=== PATIENT | female | born 1980 | race Caucasian/White ===

== ENCOUNTER 2020-07-26 10:28 | Outpatient (REF) | payer OTHER, SELFPAY | END 2020-07-26 10:29 | disposition home or self-care (01) | LOC: HO.LAB 10:28 | PROVIDERS: Visit Provider Internal Medicine | DX: Z20.828 Contact with and (suspected) exposure to other viral communicable diseases (principal) | CPT/HCPCS: U0003 ==

== ENCOUNTER 2021-07-19 23:47 | Emergency (ER) | payer OTHER, SELFPAY ==
--- NOTE | ~2021-07-19 | XR_ITS ---
EXAMINATION: XR LUMBOSACRAL SPINE CLINICAL INFORMATION: Lumbar spine pain COMPARISON: None TECHNIQUE: Three views of the lumbosacral spine. FINDINGS: There is partial visualization of thoracolumbar spinal fusion hardware. There is a mild convex left scoliosis of the lumbar spine. There is grade 1 anterolisthesis in the lower lumbar spine which may reflect L4 on L5 or L5 on S1; there are associated endplate osteophytes at this level. Alignment in the lateral projection otherwise appears maintained. There is extensive facet arthropathy of the lower lumbar spine. Vertebral body heights appear preserved. No acute fracture is seen. Sacroiliac joints are intact. XR/XR lumbar spine 2-3V IMPRESSION: No definite acute findings. Chronic appearing/degenerative changes of the lower lumbar spine. Partially visualized thoracolumbar spinal fusion hardware.
[2021-07-20 00:06] VITALS: BP 116/72; PULSE 72; RESP 18; TEMP 36.5; O2SAT 100; BMI 37.4
--- NOTE | 2021-07-20 00:48 | ED.WOUNDLAC ---
HPI - Wound/Laceration General Chief Complaint: Wound/Laceration Stated Complaint: wound complication Time Seen by Provider: 07/19/21 23:56 Source: patient Mode of arrival: ambulatory Limitations: no limitations History of Present Illness HPI narrative: 41-year-old female past medical history significant for scoliosis, gastric bypass presenting to the emergency department with complaints of severe lower back pain, and stinging/burning to and opened sore in her lower abdomen X1 day. Patient states that her back pain started today, she is not sure what precipitated it, she tells me she was on her feet a lot, and cleaning house. He tells me she has had severe back pain in the past, her last episode of severe back pain was 12 years ago when she was obese. She tells me that today after she showered she noticed that there is a foul odor coming from underneath her abdomen, she noted that there is an open sore/area. She tells me that it overlies where her last was done, her last was done over 6 years ago. She tells me that the area is very itchy, and it jain. Patient denies fevers, chills, nausea, vomiting, chest pain, shortness of breath, weakness, urinary/bowel incontinence, changes in bowel habits, headache, dizziness, sensory changes. Onset (ago): day(s) (1) Location: abdomen Associated symptoms: none Related Data Previous Rx's Medication Instructions Recorded cyclobenzaprine 10 mg tablet 10 mg PO BEDTIME PRN #7 tab 07/20/21 doxycycline hyclate 100 mg capsule 100 mg PO BID 7 Days #14 cap 07/20/21 lidocaine 5 % topical patch 1 patch TOPICAL DAILY PRN #15 ea 07/20/21 naproxen 500 mg tablet 500 mg PO BID PRN #14 tab 07/20/21 nystatin 100,000 unit/gram topical 1 appl TOPICAL BID #30 g 07/20/21 powder Allergies Allergy/AdvReac Type Severity Reaction Status Date / Time No Known Allergies Allergy Verified 07/20/21 00:05 [No Known Allergies*] Review of Systems Review of Systems: Constitutional : No Weight loss, No Fever, No Chills, No Fatigue, No Malaise ENT/Mouth : No sore throat, No Rhinorrhea Eyes: No Eye Pain, No Swelling, No Redness Cardiovascular : No Chest Pain, No SOB, No Dyspnea on Exertion, No Orthopnea, No Edema, No Palpitations Respiratory : No Cough, No Sputum, No Wheezing Gastrointestinal : No Nausea, No Vomiting, No Diarrhea, No Constipation, No abdominal Pain, No Hematochezia, No Melena Genitourinary : No Dysuria, No Urinary Frequency, No Hematuria, Musculoskeletal : + joint pain (back pain), No Myalgias, No Joint Swelling Skin : + Skin Lesions, No rash Neuro : No Weakness, No Numbness, No Dizziness, No Headache All other systems reviewed and are negative [facility] Past Medical History Attestation statement: The following information was validated with the patient. Source: old records reviewed and nursing notes reviewed Social History Social History Advance Directives: No Advance Directives Information Provided: Yes Patient : No Physical Exam Vital Signs: Vital Signs: Last Vital Signs Temp 97.7 F 07/20/21 00:06 Pulse 72 07/20/21 00:06 Resp 18 07/20/21 00:06 BP 116/72 07/20/21 00:06 Pulse Ox 100 07/20/21 00:06 Body Mass Index 37.4 VSS Appearance: Alert.? Oriented X3.? No acute distress.? Head: Normocephalic, atraumatic, no step-offs or deformities Eyes: Pupils equal, round and reactive to light.? ENT: Pharynx normal.? Neck: Normal inspection.? Neck supple.? CVS: Normal heart rate and rhythm.? Pulses normal.? Respiratory: No respiratory distress.? Breath sounds normal.? Abdomen: Soft and nontender.? Skin: Skin warm and dry.? Normal skin color.? Normal skin turgor.?+ open sore overlying her old scar w/ clear discharge that is foul smelling (picture attached) Extremities: No lower extremity edema.? No calf ttp. 5/5 strength to bilateral upper and lower extremities Back: No midline tenderness, no C-spine tenderness, full range of motion, no CVA tenderness bilaterally + pain to bilateral lower lumbar paraspinous muscles Neuro: Oriented X 3.? No motor deficit.? No sensory deficit. + pain w/ ambulation Course Reevaluation(s) Reevaluation #1: Patient's labs show no leukocytosis, baseline normocephalic anemia is noted. No acute electrolyte abnormalities. Xray shows degenerative changes. UA pending sign out will be given to Dr. Snell. Time: 02:05 MDM - Wound/Laceration MDM Narrative Medical decision making narrative: [id number] 41-year-old female past medical history significant for scoliosis, gastric bypass presenting to the emergency department with complaints of severe lower back pain, and stinging/burning to and opened sore in her lower abdomen overlying an old scar ( last c section over 6 years ago) X1 day. Upon physical examination patient appears well, she is hemodynamically stable, vital signs are stable, patient is afebrile. There is an open wound overlying her old scar w/ clear discharge that is foul smelling (picture attached) with excoriations. Patient also complains of pain to palpation to bilateral lower lumbar paraspinous muscles. Back with full range of motion, no midline tenderness. No focal neuro deficits. Sensation motor intact. No saddle paresthesias. 5/5 strength upper and lower extremities. 2+ reflexes. I do not suspect that this is an epidural abscess, or cauda equina. Likely lumbar strain. Patient's wound will be cleaned and nystatin powder will be applied to the area. Due to the open areas and excoriations patient will be put on prophylactic antibiotic, doxycycline. Plan at this time is to obtain basic labs, urine, urine and CT lumbar spine. Medical Records Attestation: I reviewed the patient's medical records. Lab Data Attestation: I reviewed the patient's lab results. Result diagrams: 07/20/21 01:04 07/20/21 01:04 Labs: Lab Results 07/20/21 07/20/21 Range/Units 01:04 01:04 WBC 9.4 (4.8-10.8) X10*3/uL RBC 4.12 L (4.20-5.50) X10*6/uL Hgb 10.2 L (12.0-16.0) g/dl Hct 33.2 L (37.0-47.0) % MCV 80.6 (80.0-98.0) fL MCH 24.8 L (27.0-33.0) pg MCHC 30.7 L (31.0-35.0) g/dl RDW 16.6 H (11.0-16.0) % Plt Count 306 (160-400) X10*3/uL MPV 10.4 (9.4-12.3) fL Immature Gran % (Auto) 0.3 (0.0-0.4) % Neut % (Auto) 62.8 (45-73) % Lymph % (Auto) 27.2 (20-40) % [place] % (Auto) 7.4 (2-11) % Eos % (Auto) 2.0 (0-4) % Baso % (Auto) 0.3 (0-2) % Lymph # (Auto) 2.5 (1.2-4.9) X10*3/uL [place] # (Auto) 0.7 (0.1-1.2) X10*3/uL Eos # (Auto) 0.2 (0.0-0.4) X10*3/uL Baso # (Auto) 0.0 (0.0-0.2) X10*3/uL Abs Immat Gran (auto) 0.03 (0.00-0.03) X10*3/uL Absolute Neuts (auto) 5.9 (2.0-8.3) x10*3/uL Absolute Nucleated RBC 0.000 (0.0-0.012) X10*3/uL Nucleated RBC % (auto) 0.0 (0.0-0.2) /100WBC Sodium 140 (135-145) mmol/L Potassium 3.8 (3.3-5.1) mmol/L Chloride 107 (96-108) mmol/L Carbon Dioxide 25 (22-29) mmol/L Anion Gap 12 (12-20) BUN 8 L (9-16) mg/dL Creatinine 0.67 (0.5-1.4) mg/dL Estim Creat Clear Calc 124.1 Estimated GFR > 60 Random Glucose 86 (60-115) mg/dL Calcium 8.8 (8.4-10.2) mg/dL Total Bilirubin < 0.2 (0.0-1.0) mg/dL AST 23 (5-31) U/L ALT 24 (0-31) U/L Alkaline Phosphatase 85 (39-117) U/L Total Protein 6.5 (6.5-8.0) g/dL Albumin 3.8 (3.5-5.0) g/dL Imaging Data Lumbar spine x-ray: Attestation: I personally reviewed and interpreted this imaging study as follows: Radiologist's impression: FINDINGS: There is partial visualization of thoracolumbar spinal fusion hardware. There is a mild convex left scoliosis of the lumbar spine. There is grade 1 anterolisthesis in the lower lumbar spine which may reflect L4 on L5 or L5 on S1; there are associated endplate osteophytes at this level. Alignment in the lateral projection otherwise appears maintained. There is extensive facet arthropathy of the lower lumbar spine. Vertebral body heights appear preserved. No acute fracture is seen. Sacroiliac joints are intact. XR/XR lumbar spine 2-3V IMPRESSION: No definite acute findings. Chronic appearing/degenerative changes of the lower lumbar spine. Partially visualized thoracolumbar spinal fusion hardware. Critical Care Time Critical Care Time Critical Care Time: No Discharge Plan Discharge Clinical Impression: Lumbar back pain, Hayde infection Patient Disposition: Home, Self-Care Instructions: Acute Low Back Pain (ED) Additional Instructions: Take your medications as prescribed. If you were prescribed antibiotics today, it is important that you take your medication to their entirety, do not skip any doses, do not finish them early. Follow-up with your primary care provider this week. Return to the emergency department with new or worsening symptoms. In case of emergency call 911 Prescriptions: New cyclobenzaprine 10 mg tablet 10 mg PO BEDTIME PRN (Reason: muscle spasm) Qty: 7 RF: 0 doxycycline hyclate 100 mg capsule 100 mg PO BID 7 Days Qty: 14 RF: 0 lidocaine 5 % adhesive patch,medicated 1 patch topical DAILY PRN (Reason: pain) Qty: 15 RF: 0 naproxen 500 mg tablet 500 mg PO BID PRN (Reason: pain) Qty: 14 RF: 0 nystatin 100,000 unit/gram powder 1 appl topical BID Qty: 30 RF: 0 Referrals: Physician,Unknown J [Primary Care Provider] - 2 days
[2021-07-20 01:08] LABS: MANUAL DIFF FLAG NO
[2021-07-20 01:11] LABS: Basophils Percent Auto 0.3 % (0-2); Eosinophils Absolute Auto 0.2 X10*3/uL (0.0-0.4); Hematocrit 33.2 % (37.0-47.0); Hemoglobin 10.2 g/dl (12.0-16.0); Imm Gran Abs Auto 0.03 X10*3/uL (0.00-0.03); Imm Gran Pct Auto 0.3 % (0.0-0.4); Lymphocytes Absolute Auto 2.5 X10*3/uL (1.2-4.9); Lymphocytes Percent Auto 27.2 % (20-40); Mean Corpuscular HGB Conc 30.7 g/dl (31.0-35.0); Mean Corpuscular Hemoglobin 24.8 pg (27.0-33.0); Mean Corpuscular Volume 80.6 fL (80.0-98.0); Mean Platelet Volume 10.4 fL (9.4-12.3); Monocytes Absolute Auto 0.7 X10*3/uL (0.1-1.2); Monocytes Percent Auto 7.4 % (2-11); Neutrophils Absolute Auto 5.9 x10*3/uL (2.0-8.3); Neutrophils Percent Auto 62.8 % (45-73); Platelet Count 306 X10*3/uL (160-400); Red Blood Count 4.12 X10*6/uL (4.20-5.50); Red Cell Distribution Width 16.6 % (11.0-16.0); White Blood Count 9.4 X10*3/uL (4.8-10.8)
[2021-07-20] MEDS: Cyclobenzaprine HCl 10 MG TABLET PO (01:11)
[2021-07-20] MEDS: Ketorolac Tromethamine 15 MG/ML VIAL 30 MG IM (01:21)
[2021-07-20 01:35] LABS: Alanine Aminotransferase 24 U/L (0-31); Albumin Level 3.8 g/dL (3.5-5.0); Alkaline Phosphatase 85 U/L (39-117); Anion Gap 12 (12-20); Aspartate Amino Transferase 23 U/L (5-31); Bilirubin Total < 0.2 mg/dL (0.0-1.0); Blood Urea Nitrogen 8 mg/dL (9-16); Calcium 8.8 mg/dL (8.4-10.2); Carbon Dioxide 25 mmol/L (22-29); Chloride 107 mmol/L (96-108); Creatinine Clr Calc Pharmacy 124.1; Estimated Glomerular Filt Rate > 60; Glucose Random 86 mg/dL (60-115); Potassium 3.8 mmol/L (3.3-5.1); Sodium 140 mmol/L (135-145); Total Protein 6.5 g/dL (6.5-8.0)
[2021-07-20 02:11] LABS: Appearance Urine CLEAR; Color Urine DK YELLOW; Glucose Urine UA NEG (NEG); Leukocyte Esterase Urine NEG (NEG); Nitrite Urine NEG (NEG); Specific Gravity - Urine 1.025 (1.005-1.025); Urine Blood NEG (NEG); Urine Ketones NEG (NEG); Urine Protein NEG (NEG-TRACE)
[2021-07-20 02:13] LABS: UPreg QC Valid YES; Urine Pregnancy NEGATIVE (NEGATIVE)
[2021-07-20 02:35] LABS: Mucus Urine 2+ /LPF; RBC Urine 0 /HPF (0); Squamous Epithelial Cell Urine 1+ /LPF; WBC Urine 0-2 /HPF (0-4)
== END 2021-07-20 04:04 | disposition home or self-care (01) ==
PROVIDERS: Physician Assistant; Emergency Provider Student in an Organized Health Care Education/Training Program
DX: M54.50 Low back pain, unspecified (principal); B37.2 Candidiasis of skin and nail; R10.30 Lower abdominal pain, unspecified; Z98.84 Bariatric surgery status; Z79.899 Other long term (current) drug therapy
CPT/HCPCS: 36415; 72100; 80053; 81001; 81025; 85025; 96372; 99283; 99284; J1885

== ENCOUNTER 2021-08-23 18:22 | Outpatient (REF) | payer OTHER, SELFPAY ==
[2021-08-23 19:27] LABS: Influenza A PCR NEGATIVE (Negative); Influenza B PCR NEGATIVE (Negative); Resp Syncy Virus RNA Qual PCR NEGATIVE (Negative); SARS COV2 PCR INHOUSE POSITIVE (Negative)
== END 2021-08-23 18:23 | disposition home or self-care (01) ==
LOC: HO.LNP 18:22
PROVIDERS: Visit Provider Physician Assistant Medical
DX: Z20.822 Contact with and (suspected) exposure to COVID-19 (principal); J06.9 Acute upper respiratory infection, unspecified
CPT/HCPCS: 0241U

== ENCOUNTER 2021-10-22 10:29 | Emergency (ER) | payer OTHER, SELFPAY ==
--- NOTE | ~2021-10-22 | XR_ITS ---
EXAMINATION: XR CHEST CLINICAL INFORMATION: Back pain. COMPARISON: Chest 06/16/2019 TECHNIQUE: Frontal view of the chest was obtained. FINDINGS: The lungs are hypoexpanded and clear of acute pneumonic process. The heart size and pulmonary vascularity is normal. There are 2 none Warren rods extending through the thoracic and lumbar spine for stabilization of spine. XR/XR chest 1V IMPRESSION: Hypoexpanded lungs with no acute process seen. No major change from 06/16/2019.
[2021-10-22 10:36] VITALS: BP 116/75; PULSE 81; RESP 20; TEMP 36.7; BMI 31.9
--- NOTE | 2021-10-22 11:45 | ED_ITS ---
HPI - General Adult General Chief complaint: Back Pain/Injury Stated complaint: Back & neck pain Time Seen by Provider: 10/22/21 11:35 History of Present Illness HPI narrative: Patient has 2 complaints Since starting yesterday over 24 hours ago she started to get low back pain which is now spread all over her back and to the back of her neck, this pain is worse with movement and bending, there is no dysuria or incontinence no numbness weakness or tingling, she is comfortable at rest but getting out of bed or bending or twisting hurts her back and neck This pain is similar to multiple other episodes the same as this that she has had with her back The other complaint is this morning 3 hours ago she woke up and felt a pressure sensation in her chest, no diaphoresis no vomiting it is not exertional there is no nausea there is no abdominal pain. She does have a history of a gastric bypass done over 10 years ago but again no abdominal pain no bloating no nausea Related Data Previous Rx's Medication Instructions Recorded cyclobenzaprine 10 mg tablet 10 mg PO BEDTIME PRN #7 tab 07/20/21 doxycycline hyclate 100 mg capsule 100 mg PO BID 7 Days #14 cap 07/20/21 lidocaine 5 % topical patch 1 patch TOPICAL DAILY PRN #15 ea 07/20/21 naproxen 500 mg tablet 500 mg PO BID PRN #14 tab 07/20/21 nystatin 100,000 unit/gram topical 1 appl TOPICAL BID #30 g 07/20/21 powder acetaminophen 500 mg tablet 1,000 mg PO QID PRN #30 tab 10/22/21 hydrocodone 5 mg-acetaminophen 325 1 tab PO Q6H PRN #14 tab 10/22/21 mg tablet metaxalone 800 mg tablet (Skelaxin) 800 mg PO TID PRN #10 tab 10/22/21 Allergies Allergy/AdvReac Type Severity Reaction Status Date / Time No Known Allergies Allergy Verified 08/23/21 15:25 [No Known Allergies*] Review of Systems Review of Systems: Patient complains of neck and back pain similar to prior and chest pain Negatives are no fever no chills no dizziness no weakness no fainting no feeling faint no numbness weakness or tingling no difficulty breathing or swallowing no sweating no exertional symptoms no vomiting no sweating, no abdominal pain no nausea no diarrhea no blood in stool no dysuria no changes to bowel or bladder no incontinence no rash no extremity pains Yes all other systems are reviewed and are negative [facility]LY [facility] Past Medical History Source: nursing notes reviewed Surgical History (Updated 10/22/21 @ 10:38 by Amelia Mayberry) History of back surgery History of hip surgery Social History Social History Patient Tobacco Use Status: Never used Tobacco Advance Directives: No Advance Directives Information Provided: No Physical Exam ED Vital Signs: Vital Signs - 24 hr 10/22/21 10:36 10/22/21 12:23 Temperature 98.1 F 98.0 F Pulse Rate 81 50 Respiratory Rate 20 16 Blood Pressure 116/75 117/67 Pulse Oximetry 98 BMI result Body Mass Index 31.9 General appearance is no acute distress, cooperative Head is normocephalic atraumatic The neck is supple but there is pain with lateral movement and there is tenderness bilaterally on trapezius and bilateral soft tissue there is no midline tenderness The chest is clear to auscultation bilateral, there is chest wall tenderness, pain is easily reproduced The abdomen is soft and nontender The back had diffuse soft tissue tenderness. Upper back lower back trapezius and bilateral soft tissue of the neck There is no focal bony tenderness anywhere, skin was normal and no CVA tenderness Pain in both neck and back is easily reproduced with bending standing and movement and is improved with laying down The extremities is full range of motion x4 Neuro there is no loss of sensation in extremities, motor is 5/5 x4 and gait is normal Course Course Course Narrative: Patient with musculoskeletal back and neck pain similar to multiple prior episodes New symptom was pain in the anterior chest which she felt was muscle spasm po ssibly related to her back pain This pain was reproducible with palpation This was evaluated with EKG chest x-ray and a troponin all of which were normal The EKG showed sinus bradycardia at a rate of 49 intervals were normal, QT was normal, there was no acute ST elevations no acute ischemic changes An incomplete right bundle branch was noted and this was noted on prior EKG from 2019 No other acute lab abnormalities, chest x-ray was normal and patient was diagnosed with musculoskeletal chest wall and back pain and was discharged This case was discussed with Dr. choi Medical Decision Making Lab Data Result diagrams: 10/22/21 12:06 10/22/21 12:06 Labs: Lab Results 02/27/22 02/27/22 02/27/22 Range/Units 12:06 12:06 12:06 WBC 5.6 (4.8-10.8) X10*3/uL RBC 4.48 (4.20-5.50) X10*6/uL Hgb 13.4 D (12.0-16.0) g/dl Hct 41.1 D (37.0-47.0) % MCV 91.7 (80.0-98.0) fL MCH 29.9 (27.0-33.0) pg MCHC 32.6 (31.0-35.0) g/dl RDW 14.0 (11.0-16.0) % Plt Count 261 (160-400) X10*3/uL MPV 11.1 (9.4-12.3) fL Immature Gran % (Auto) 0.2 (0.0-0.4) % Neut % (Auto) 58.6 (45-73) % Lymph % (Auto) 31.6 (20-40) % [place] % (Auto) 7.3 (2-11) % Eos % (Auto) 2.1 (0-4) % Baso % (Auto) 0.2 (0-2) % Lymph # (Auto) 1.8 (1.2-4.9) X10*3/uL [place] # (Auto) 0.4 (0.1-1.2) X10*3/uL Eos # (Auto) 0.1 (0.0-0.4) X10*3/uL Baso # (Auto) 0.0 (0.0-0.2) X10*3/uL Abs Immat Gran (auto) 0.01 (0.00-0.03) X10*3/uL Absolute Neuts (auto) 3.3 (2.0-8.3) x10*3/uL Absolute Nucleated RBC 0.000 (0.0-0.012) X10*3/uL Nucleated RBC % (auto) 0.0 (0.0-0.2) /100WBC D-Dimer High Sensitivty NG/ML Sodium 139 (135-145) mmol/L Potassium 4.3 (3.3-5.1) mmol/L Chloride 108 (96-108) mmol/L Carbon Dioxide 27 (22-29) mmol/L Anion Gap 8 L (12-20) BUN 11 (9-16) mg/dL Creatinine 0.69 (0.5-1.4) mg/dL Estim Creat Clear Calc 119.3 Estimated GFR > 60 Random Glucose 75 (60-115) mg/dL Calcium 9.1 (8.4-10.2) mg/dL Troponin I High Sens < 3.5 (<3.5-17.0) ng/L 10/22/21 Range/Units 12:06 WBC (4.8-10.8) X10*3/uL RBC (4.20-5.50) X10*6/uL Hgb (12.0-16.0) g/dl Hct (37.0-47.0) % MCV (80.0-98.0) fL MCH (27.0-33.0) pg MCHC (31.0-35.0) g/dl RDW (11.0-16.0) % Plt Count (160-400) X10*3/uL MPV (9.4-12.3) fL Immature Gran % (Auto) (0.0-0.4) % Neut % (Auto) (45-73) % Lymph % (Auto) (20-40) % [place] % (Auto) (2-11) % Eos % (Auto) (0-4) % Baso % (Auto) (0-2) % Lymph # (Auto) (1.2-4.9) X10*3/uL [place] # (Auto) (0.1-1.2) X10*3/uL Eos # (Auto) (0.0-0.4) X10*3/uL Baso # (Auto) (0.0-0.2) X10*3/uL Abs Immat Gran (auto) (0.00-0.03) X10*3/uL Absolute Neuts (auto) (2.0-8.3) x10*3/uL Absolute Nucleated RBC (0.0-0.012) X10*3/uL Nucleated RBC % (auto) (0.0-0.2) /100WBC D-Dimer High Sensitivty < 150 NG/ML Sodium (135-145) mmol/L Potassium (3.3-5.1) mmol/L Chloride (96-108) mmol/L Carbon Dioxide (22-29) mmol/L Anion Gap (12-20) BUN (9-16) mg/dL Creatinine (0.5-1.4) mg/dL Estim Creat Clear Calc Estimated GFR Random Glucose (60-115) mg/dL Calcium (8.4-10.2) mg/dL Troponin I High Sens (<3.5-17.0) ng/L Discharge Plan Discharge Clinical Impression: Back pain, Anterior chest wall pain Patient Disposition: Home, Self-Care Additional Instructions: Our workup today did not show any evidence of heart attack or blood clot in her lungs Pain is likely inflammation of muscles and muscle spasm Return to the ER any time for any worsening chest pain any abdominal pain at all vomiting shortness of breath any worse condition or any concerns Prescriptions: New metaxalone [Skelaxin] 800 mg tablet 800 mg PO TID PRN (Reason: muscle pain) Qty: 10 0RF hydrocodone-acetaminophen 5-325 mg tablet 1 tab PO Q6H PRN (Reason: pain) Qty: 14 0RF Rx Instructions: Narcotic, may cause drowsiness so no driving for 6 hours after taking acetaminophen 500 mg tablet 1,000 mg PO QID PRN (Reason: pain) Qty: 30 0RF No Action cyclobenzaprine 10 mg tablet 10 mg PO BEDTIME PRN (Reason: muscle spasm) Qty: 7 0RF doxycycline hyclate 100 mg capsule 100 mg PO BID 7 Days Qty: 14 0RF lidocaine 5 % adhesive patch,medicated 1 patch topical DAILY PRN (Reason: pain) Qty: 15 0RF Rx Instructions: leave on most painful area for up to 12 hrs naproxen 500 mg tablet 500 mg PO BID PRN (Reason: pain) Qty: 14 0RF Rx Instructions: Take with food nystatin 100,000 unit/gram powder 1 appl topical BID Qty: 30 0RF
--- NOTE | 2021-10-22 11:47 | ECG_ITS ---
Test Reason : CHEST WALL PAIN Blood Pressure : / mmHG Vent. Rate : 049 BPM Atrial Rate : 049 BPM P-R Int : 146 ms QRS Dur : 098 ms QT Int : 424 ms P-R-T Axes : 028 040 040 degrees QTc Int : 383 ms Sinus bradycardia with sinus arrhythmia Incomplete right bundle branch block Borderline ECG When compared with ECG of 02-NOV-2018 15:47, No significant change was found Referred By: George Fierro Electronically Signed By:Angelo Krishnan
[2021-10-22 12:11] LABS: MANUAL DIFF FLAG NO
[2021-10-22 12:13] LABS: Basophils Percent Auto 0.2 % (0-2); Eosinophils Absolute Auto 0.1 X10*3/uL (0.0-0.4); Eosinophils Percent Auto 2.1 % (0-4); Hematocrit 41.1 % (37.0-47.0); Hemoglobin 13.4 g/dl (12.0-16.0); Imm Gran Abs Auto 0.01 X10*3/uL (0.00-0.03); Imm Gran Pct Auto 0.2 % (0.0-0.4); Lymphocytes Absolute Auto 1.8 X10*3/uL (1.2-4.9); Lymphocytes Percent Auto 31.6 % (20-40); Mean Corpuscular HGB Conc 32.6 g/dl (31.0-35.0); Mean Corpuscular Hemoglobin 29.9 pg (27.0-33.0); Mean Corpuscular Volume 91.7 fL (80.0-98.0); Mean Platelet Volume 11.1 fL (9.4-12.3); Monocytes Absolute Auto 0.4 X10*3/uL (0.1-1.2); Monocytes Percent Auto 7.3 % (2-11); Neutrophils Absolute Auto 3.3 x10*3/uL (2.0-8.3); Neutrophils Percent Auto 58.6 % (45-73); Platelet Count 261 X10*3/uL (160-400); Red Blood Count 4.48 X10*6/uL (4.20-5.50); White Blood Count 5.6 X10*3/uL (4.8-10.8)
[2021-10-22 12:23] VITALS: BP 117/67; PULSE 50; RESP 16; TEMP 36.7; O2SAT 98
[2021-10-22 12:31] LABS: D Dimer High Sensitivity < 150 NG/ML
[2021-10-22 12:33] LABS: Troponin-I High Sensitivity < 3.5 ng/L (<3.5-17.0)
[2021-10-22 12:34] LABS: Anion Gap 8 (12-20); Blood Urea Nitrogen 11 mg/dL (9-16); Calcium 9.1 mg/dL (8.4-10.2); Carbon Dioxide 27 mmol/L (22-29); Chloride 108 mmol/L (96-108); Creatinine Clr Calc Pharmacy 119.3; Estimated Glomerular Filt Rate > 60; Glucose Random 75 mg/dL (60-115); Potassium 4.3 mmol/L (3.3-5.1); Sodium 139 mmol/L (135-145)
[2021-10-22] MEDS: HYDROcodone Bit/Acetam 5/325 TABLET 1 TAB PO (13:22)
[2021-10-22] MEDS: Acetaminophen 325 MG TABLET 650 MG PO (13:22)
[2021-10-22] MEDS: Ketorolac Tromethamine 15 MG/ML VIAL IM (13:23)
== END 2021-10-22 13:52 | disposition home or self-care (01) ==
PROVIDERS: Physician Assistant Medical; Emergency Provider Emergency Medicine Emergency Medical Services; PCP Internal Medicine
DX: M54.50 Low back pain, unspecified (principal); R07.89 Other chest pain; Z79.899 Other long term (current) drug therapy; Z98.84 Bariatric surgery status
CPT/HCPCS: 36415; 71045; 80048; 84484; 85025; 85379; 93005; 96372; 99284; J1885

== ENCOUNTER 2022-06-05 09:42 | Emergency (ER) | payer OTHER, SELFPAY ==
[2022-06-05 09:54] VITALS: BP 116/78; PULSE 72; RESP 18; TEMP 36.7; O2SAT 97; BMI 34.9
--- OUTSIDE RECORDS SUMMARY | 2022-06-05 11:09 | XMS_ITS | Continuity of Care Document ---
:1980 Author Organization [facility] Address [address] [place] [id number]- Care Team Providers Name Role Phone Lashaun Cardenas MD Primary Care Physician Encounter [facility] Date(s): 09/10/19 - 09/10/[address] [address]- [facility] Encounter Diagnosis Influenza B (Final) - 09/10/19 Discharge Disposition: A-D/C Home Attending Physician: Flory Martins MD Admitting Physician: Flory Martins MD Referring Physician: Not on Staff, Referring MD Allergies, Adverse Reactions, Alerts Substance Reaction Severity Status NKA Active Immunizations Not Given Vaccine Date Status Refusal Reason pneumococcal 23-valent vaccine 12/10/18 Not Given P atient Refuses influenza virus vaccine, inactivated1 06/11/14 Not Given Parent Or Guardian Refuses 1Result Note: vaccine info sheet given, advised safe and encouraged with , pt wants to wait until OB visit Medications ferrous sulfate 325 mg oral tablet 1 tablet = 325 mg, By Mouth, 2 times a day, # 60 tablet, 1 Refills, Maintenance, 03/07/17 13:31:39 Start Date: 03/07/17 Status: OrderedIbuprofen 800 mg, By Mouth, 3 times a day, PRN, Maintenance, Pain , Moderate, 12/09/18 9:21:20 EDT Start Date: 12/09/18 Status: OrderedNeurontin 100 mg oral capsule 100 mg, 1, capsule, By Mouth, 3 times a day, # 12 capsule, Refills 0, Tot. Refills 0, Maintenance, 12/07/18 14:04:14 EDT, Print Requisition Start Date: 12/07/18 Status: Ordered Problem List Condition Effective Dates Status Health Status Informant (Confirmed) Active Results Radiology Reports Exam Date Time Procedure Performing Provider Status 09/10/19 3:51 PM Chest 2 Views Frontal and Lat Moni Guillory (Verified) Notes:(Chest 2 Views Frontal and Lat) Reason For Exam: Shortness of Breath, Fever;Other:RESULT: Chest 2 Views Frontal and Lat Chest 2 Views Frontal and Lat INDICATION: Shortness of breath. COMPARISON: Multiple priors, most recent 12/08/2018. FINDINGS: LINES AND TUBES: None. LUNGS AND PLEURA: Clear lungs. Normal pulmonary vascularity. No pleural effusion. No pneumothorax. HEART, MEDIASTINUM AND LAURIE: Heart is normal in size. Normal mediastinal and hilar contour. Elevated right hemidiaphragm, unchanged. BONES AND SOFT TISSUES: No acute osseous abnormality. Surgical clips in the right upper quadrant. Danny rods remain intact. IMPRESSION: No acute abnormality. I have personally reviewed the images and I agree with this report. WSN: [id number] Dictated By: Jose Alejandro Schneider MD Dictated Date/Time: 09/10/19 4:05 pm Reviewed By: Lexa Meyers MD Signed By: Lexa Meyers MD Signed Date/Time: 09/10/19 4:10 pm Transcribed By: LAMBERTO Transcribed Date/Time: 09/10/19 3:53 pm Vital Signs Most recent to oldest 1 2 3 [Reference Range]: Weight 81.9 kg 81.9 kg (09/10/19 4:18 PM) (09/10/19 1:59 PM) Oxygen Saturation [94-100 %] 100 % 100 % 100 % (09/10/19 4:18 PM) (09/10/19 1:59 PM) (09/10/19 1:5 7 PM) Pulse Rate [55-90 bpm] 75 bpm 113 bpm 123 bpm (09/10/19 4:18 PM) *H* *H* (09/10/19 1:59 PM) (09/10/19 1:57 PM) Blood Pressure [90-138/55-84 mm 116/69 mm Hg 116/72 mm Hg Hg] (09/10/19 4:18 PM) (09/10/19 1:59 PM) Respiratory Rate [16-30 br/min] 19 br/min 18 br/min (09/10/19 4:18 PM) (09/10/19 1:59 PM) Temperature [96.8-100.4 DegF] 98.2 DegF 98.6 DegF (09/10/19 4:18 PM) (09/10/19 1:59 PM) Mode of Delivery (Oxygen) Room air Room air (09/10/19 4:18 PM) (09/10/19 1:59 PM) Blood pressure sites Arm, right Arm, right (09/10/19 4:18 PM) (09/10/19 1:59 PM) Temperature Route Oral Oral (09/10/19 4:18 PM) (09/10/19 1:59 PM) Dry Weight 81.9 kg 81.9 kg (09/10/19 4:18 PM) (09/10/19 1:59 PM) Weight Obtained Via Standing scale (09/10/19 1:59 PM) Dry Weight Obtained Via Standing scale (09/10/19 1:59 PM) Social History Social History Type Response Smoking Status Never smoker entered on: 12/08/14 Sex
[2022-06-05] MEDS: Ketorolac Tromethamine 60 MG/2 ML VIAL IM (12:09)
[2022-06-05] MEDS: Baclofen 10 MG TABLET PO (12:09)
--- NOTE | 2022-06-05 13:21 | PC.NURSE ---
pt is leaving and I will call her once Dr Kaiser puts in discharge, Dr Kaiser is extremely busy in the main ED and cannot address this patient right now. pain is 4/10 with effect from meds. [facility] in [place] in [facility] for pharmacy . her number is [phone]
--- NOTE | 2022-06-05 14:25 | ED.NECK ---
HPI - Neck Pain/Injury General Chief Complaint: Neck Pain/Injury Stated Complaint: neck pain/upper back pain Time Seen by Provider: 06/05/22 11:09 Source: patient Mode of arrival: ambulatory Limitations: no limitations History of Present Illness HPI Narrative: Patient comes to the emergency room complaining of left-sided neck pain, scapular pain, pain under the axilla, shoulder. Patient states it has been going on for 2 days, patient denies any recent injuries. Patient denies any URI or UTI symptoms. Related Data Previous Rx's Medication Instructions Recorded cyclobenzaprine 10 mg tablet 10 mg PO BEDTIME PRN muscle spasm 07/20/21 #7 tabs doxycycline hyclate 100 mg capsule 100 mg PO BID 7 days #14 caps 07/20/21 lidocaine 5 % topical patch 1 patch topical DAILY PRN pain #15 07/20/21 ea naproxen 500 mg tablet 500 mg PO BID PRN pain #14 tabs 07/20/21 nystatin 100,000 unit/gram topical 1 appl topical BID #30 grams 07/20/21 powder acetaminophen 500 mg tablet 1,000 mg PO QID PRN pain #30 tabs 10/22/21 hydrocodone 5 mg-acetaminophen 325 1 tab PO Q6H PRN pain #14 tabs 10/22/21 mg tablet hydrocodone 5 mg-acetaminophen 325 1 tab PO Q6H PRN pain #14 tabs 10/22/21 mg tablet metaxalone 800 mg tablet (Skelaxin) 800 mg PO TID PRN muscle pain #10 10/22/21 tabs metaxalone 800 mg tablet (Skelaxin) 800 mg PO TID PRN muscle pain #10 10/22/21 tabs baclofen 10 mg tablet 10 mg PO BID #10 tabs 06/05/22 ketorolac 10 mg tablet 10 mg PO BID PRN pain #7 tabs 06/05/22 Allergies Allergy/AdvReac Type Severity Reaction Status Date / Time No Known Allergies Allergy Verified 08/23/21 15:25 [No Known Allergies*] Review of Systems Review of Systems: Constitutional : No Weight loss, No Fever, No Chills, No Night Sweats, No Fatigue, No Malaise ENT/Mouth : No Hearing loss, No Ear Pain, No Nasal Congestion, No Sinus Pain, No Hoarseness, No sore throat, No Rhinorrhea, No Swallowing Difficulty Eyes: No Eye Pain, No Swelling, No Redness, No Foreign Body, No Discharge, No Vision Changes Cardiovascular : No Chest Pain, No SOB, No Dyspnea on Exertion, No Orthopnea, No Edema, No Palpitations Respiratory : No Cough, No Sputum, No Wheezing, No Smoke Exposure, No Dyspnea Gastrointestinal : No Nausea, No Vomiting, No Diarrhea, No Constipation, No abdominal Pain, No Hematochezia, No Melena Genitourinary : no irregular bleeding, No Dysuria, No Urinary Frequency, No Hematuria, No Urinary Incontinence, No Urgency, No Flank Pain, No Urinary Flow Changes, No Hesitancy Musculoskeletal : Patient comes complaining of suprascapular pain on the left side, left-sided neck pain, shoulder pain, supraclavicular pain Skin : No Skin Lesions, No rash Neuro : No Weakness, No Numbness, No Paresthesias, No Loss of Consciousness, No Dizziness, No Headache Psych : No Anxiety/Panic, No Depression, No SI/HI/AH/VH, No Social Issues, Heme/Lymph: No Bruising, No Bleeding,No Lymphadenopathy Endocrine : No Polyuria, No Polydipsia, No Temperature Intolerance PMFSH Past Medical History Surgical History History of back surgery History of hip surgery Social History Social History Patient Tobacco Use Status: Never used Tobacco Advance Directives: No Advance Directives Information Provided: No Physical Exam Vital Signs: Vital Signs: Last Vital Signs Temp 98.1 F 06/05/22 09:54 Pulse 72 06/05/22 09:54 Resp 18 06/05/22 09:54 BP 116/78 06/05/22 09:54 Pulse Ox 97 06/05/22 09:54 O2 Del Method 06/05/22 09:54 BMI result Body Mass Index 34.9 Const: Other: Appearance: Alert. Oriented X3. No acute distress. Eyes: Pupils equal, round and reactive to light. ENT: Pharynx normal. Neck: Normal inspection. Neck supple. No lymph nodes noted. No crepitus CVS: Normal heart rate and rhythm. Pulses normal. Normal S1 and S2 Respiratory: No respiratory distress. Breath sounds normal. No Wheezing. No rales Abdomen: Soft and nontender. No rigidity. No distention. Skin: Skin warm and dry. Normal skin color. Normal skin turgor. Musculoskeletal: Pain to palpation over the supraclavicular, suprascapular, left side of the neck. No C-spine tenderness Extremities: No lower extremity edema. No Lacerations. No Rash Neuro: Oriented X 3. No motor deficit. No sensory deficit. Moving all extremities. No slurred speech. CN 2 through 12 grossly intact Psych: calm, cooperative, normal affect Course Course Course Narrative: I discussed the physical exam with the patient, no imaging necessary. Patient given 1 dose of IM Toradol and p.o. baclofen Discharge Plan Discharge Clinical Impression: Musculoskeletal back pain Patient Disposition: Home, Self-Care Instructions: Musculoskeletal Pain (ED) Additional Instructions: Please follow-up with your primary care physician tomorrow. If you have any worsening or new symptoms, please return to the emergency room or call 911 Prescriptions: New baclofen 10 mg tablet 10 mg PO BID Qty: 10 0RF ketorolac 10 mg tablet 10 mg PO BID PRN (Reason: pain) Qty: 7 0RF Rx Instructions: Do not use this medication with naproxen, ibuprofen, NSAIDs No Action cyclobenzaprine 10 mg tablet 10 mg PO BEDTIME PRN (Reason: muscle spasm) Qty: 7 0RF doxycycline hyclate 100 mg capsule 100 mg PO BID 7 Days Qty: 14 0RF lidocaine 5 % adhesive patch,medicated 1 patch topical DAILY PRN (Reason: pain) Qty: 15 0RF Rx Instructions: leave on most painful area for up to 12 hrs naproxen 500 mg tablet 500 mg PO BID PRN (Reason: pain) Qty: 14 0RF Rx Instructions: Take with food nystatin 100,000 unit/gram powder 1 appl topical BID Qty: 30 0RF metaxalone [Skelaxin] 800 mg tablet 800 mg PO TID PRN (Reason: muscle pain) Qty: 10 0RF hydrocodone-acetaminophen 5-325 mg tablet 1 tab PO Q6H PRN (Reason: pain) Qty: 14 0RF Rx Instructions: Narcotic, may cause drowsiness so no driving for 6 hours after taking acetaminophen 500 mg tablet 1,000 mg PO QID PRN (Reason: pain) Qty: 30 0RF metaxalone [Skelaxin] 800 mg tablet 800 mg PO TID PRN (Reason: muscle pain) Qty: 10 0RF hydrocodone-acetaminophen 5-325 mg tablet 1 tab PO Q6H PRN (Reason: pain) Qty: 14 0RF Rx Instructions: Narcotic, no driving for 6 hours after taking
== END 2022-06-05 12:00 | disposition home or self-care (01) ==
PROVIDERS: Emergency Provider Emergency Medicine
DX: M54.50 Low back pain, unspecified (principal); M54.2 Cervicalgia; Z79.899 Other long term (current) drug therapy
CPT/HCPCS: 96372; 99283; 99284; J1885

== ENCOUNTER 2022-07-09 18:44 | Emergency (ER) | payer OTHER, SELFPAY ==
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
[2022-07-09 19:09] VITALS: BP 113/74; PULSE 93; RESP 18; TEMP 36.1; O2SAT 99; BMI 37.2
== END 2022-07-09 20:08 | disposition left against medical advice (07) ==
PROVIDERS: Emergency Provider Emergency Medicine
DX: M54.9 Dorsalgia, unspecified (principal)
CPT/HCPCS: 99281

== ENCOUNTER 2022-07-10 09:47 | Emergency (ER) | payer OTHER, SELFPAY ==
--- NOTE | ~2022-07-10 | US_ITS ---
EXAMINATION: US VENOUS ULTRASOUND WITH DOPPLER LOWER EXTREMITY, LEFT CLINICAL INFORMATION: Left leg pain COMPARISON: None TECHNIQUE: Ultrasound of the deep veins is performed from the hip to the calf with compression sonography and color and pulse Doppler assessment. Spectral analysis with color-flow imaging is performed. FINDINGS: There is normal venous compression and respiratory variation and augmented flow. The visualized common femoral vein, superficial femoral vein, profunda femoral vein, popliteal vein, and the trifurcation region shows no evidence of deep venous thrombosis. There is no anechoic popliteal fossa cyst measuring 2.3 x 1.1 x 1.6 cm. If the patient's symptoms persist, followup ultrasound in 5 days 7 days might be of value to exclude proximal propagation from a non-visualized calf vein. US/US venous duplex LE IMPRESSION: 1. No DVT demonstrated in the left lower extremity. 2. Small popliteal fossa cyst.
--- NOTE | ~2022-07-10 | XR_ITS ---
EXAMINATION: XR KNEE, LEFT CLINICAL INFORMATION: Pain and swelling COMPARISON: None TECHNIQUE: Four views of the left knee. FINDINGS: Bone alignment is normal. No fracture or dislocation. Degenerative meniscal calcification. Small osteophytes patellofemoral joint. Small joint effusion. XR/XR knee LT 4V IMPRESSION: Degenerative changes.
[2022-07-10 10:07] VITALS: BP 120/82; PULSE 71; RESP 20; TEMP 36.3; O2SAT 100; BMI 37.2
--- NOTE | 2022-07-10 12:47 | ED_ITS ---
HPI - Extremity Problem General Chief complaint: Extremity Problem Stated complaint: L Leg Pain No Injury Time Seen by Provider: 07/10/22 12:37 Source: patient Mode of arrival: ambulatory Limitations: no limitations History of Present Illness HPI Narrative: Patient is a 42 year old female with no reported past medical history who presents to the ED today with her spouse for evaluation of left knee pain, swelling, and associated numbness/tingling. She states she was woke up this morning with excruciating pain in her L knee and calf. She denies any injury or trauma to the knee. Ambulation and any slight movements make the pain worse. She was seen here last night and took a muscle relaxer after she was discharged home which currently is not helping her knee pain and states she has not taken anything for pain since trying the muscle relaxer. She denies fevers, chills, other joint pain, OCP use, recent travel, recent surgeries, and recent illness. MD Complaint: joint swelling and joint pain Onset (ago): hour(s) (5) Pain Consistency: constant Location: left Severity scale (1-10): 10 Quality: aching and constant Radiation: distal (calf) Relieving factors: nothing Exacerbating factors: range of motion, weight bearing and walking Associated symptoms: denies other symptoms Related Data Previous Rx's Medication Instructions Recorded cyclobenzaprine 10 mg tablet 10 mg PO BEDTIME PRN muscle spasm 07/20/21 #7 tabs doxycycline hyclate 100 mg capsule 100 mg PO BID 7 days #14 caps 07/20/21 lidocaine 5 % topical patch 1 patch topical DAILY PRN pain #15 07/20/21 ea naproxen 500 mg tablet 500 mg PO BID PRN pain #14 tabs 07/20/21 nystatin 100,000 unit/gram topical 1 appl topical BID #30 grams 07/20/21 powder acetaminophen 500 mg tablet 1,000 mg PO QID PRN pain #30 tabs 10/22/21 hydrocodone 5 mg-acetaminophen 325 1 tab PO Q6H PRN pain #14 tabs 10/22/21 mg tablet hydrocodone 5 mg-acetaminophen 325 1 tab PO Q6H PRN pain #14 tabs 10/22/21 mg tablet metaxalone 800 mg tablet (Skelaxin) 800 mg PO TID PRN muscle pain #10 10/22/21 tabs metaxalone 800 mg tablet (Skelaxin) 800 mg PO TID PRN muscle pain #10 10/22/21 tabs baclofen 10 mg tablet 10 mg PO BID #10 tabs 06/05/22 ketorolac 10 mg tablet 10 mg PO BID PRN pain #7 tabs 06/05/22 diazepam 2 mg tablet (Valium) 2 mg PO TID PRN muscle spasm #10 07/10/22 tabs ibuprofen 800 mg tablet 800 mg PO Q8H PRN pain #10 tabs 07/10/22 oxycodone 5 mg tablet 5 mg PO Q6H PRN pain #10 tabs 07/10/22 Allergies Allergy/AdvReac Type Severity Reaction Status Date / Time No Known Allergies Allergy Verified 08/23/21 15:25 [No Known Allergies*] Review of Systems Review of Systems: Constitutional : No Weight loss, No Fever, No Chills, No Night Sweats, No Fatigue, No Malaise ENT/Mouth : No Hearing loss, No Ear Pain, No Nasal Congestion, No Sinus Pain, No Hoarseness, No sore throat, No Rhinorrhea, No Swallowing Difficulty Eyes: No Eye Pain, No Swelling, No Redness, No Foreign Body, No Discharge, No Vision Changes Cardiovascular : No Chest Pain, No SOB, No Dyspnea, No Edema, No Palpitations Respiratory : No Cough, No Sputum, No Wheezing, No Dyspnea Gastrointestinal : No Nausea, No Vomiting, No Diarrhea, No Constipation, No abdominal Pain, No Hematochezia, No Melena Genitourinary : no irregular bleeding, No Dysuria, No Urinary Frequency, No Hematuria, No Urinary Incontinence, No Urgency, No Flank Pain, No Urinary Flow Changes, No Hesitancy Musculoskeletal : + Left knee pain, +L knee swelling, + numbness/tingling. No other joint pain, No Myalgias, No Joint Swelling Skin : No Skin Lesions, No rash Neuro : No Weakness, No Numbness, No Paresthesias, No Loss of Consciousness, No Dizziness, No Headache Yes all other systems are reviewed and are negative [facility] Past Medical History Attestation statement: The following information was validated with the patient. Source: old records reviewed, obtained from family and nursing notes reviewed Surgical History History of back surgery History of hip surgery Social History Social History Patient Tobacco Use Status: Never used Tobacco Advance Directives: No Physical Exam Vital Signs: Vital Signs: Last Vital Signs Temp 97.4 F 07/10/22 10:07 Pulse 71 07/10/22 10:07 Resp 20 07/10/22 10:07 BP 120/82 07/10/22 10:07 Pulse Ox 100 07/10/22 10:07 O2 Del Method 07/10/22 10:07 BMI result Body Mass Index 37.2 vital signs have been reviewed as normal and appeared to be correct. Blood pressure normal Heart rate normal. Respiration rate normal. Temperature normal. Oxygen saturation normal. Appearance: Alert. Oriented X3. No acute distress. Pt sitting in exam chair holding L knee and crying. Head: Normal external exam. Normocephalic. Atraumatic. Eyes: PERRLA. EOMI. Conjunctiva and sclera normal. Eyelids normal. ENT: Pharynx normal. Uvula midline. Moist mucous membranes. Neck: Normal inspection. Neck supple. FROM. CVS: Normal heart rate and rhythm. Respiratory: No respiratory distress. Painless inspiration. Skin: Skin warm and dry. Normal skin color. Normal skin turgor. No rashes/lesions/lacerations noted. Extremities: Mild effusion noted over the L knee. Tender to palpation over the medial and lateral joint lines of the L knee. ROM limited due to pt being in pain. All other extremities exhibit normal range of motion and nontender. No lower extremity edema. Neuro: Oriented X 3. No motor deficit. No sensory deficit. Reflexes normal. Normal steady gait. No focal neuro deficits noted. Vascular: + 2 radial pulses/+ 2 distal pedal pulses/+2 dorsalis pedis b/l. Normal cap refill. No cyanosis noted to upper extremity nails and lower extremity toes nails. Course Course Course Narrative: Patient is a 42 year old female with no reported past medical history who presents to the ED today with her spouse for evaluation of left knee pain, swelling, and associated numbness/tingling. Pt currently afebrile without tachycardia or tachypnea. LLE NVI. Mild effusion noted over the L knee. She is tender to palpation over the L medial and lateral joint lines, non-tender in the popliteal space and calf. Low Wells DVT score, low concern for DVT, however will order U/S of LLE for r/o. L knee x-ray ordered to r/o bony abnormalities, arthritis flare, gout. Oxycodone, valium, and motrin for pain. Reevaluation(s) Reevaluation #1: Venous duplex U/S of LLE shows no DVT. Does show small popliteal fossa cyst, however pt non tender in this are.. Time: 13:17 Reevaluation #2: L knee x-ray shows degenerative changes, no evidence of acute abnormalities. Discussed imaging with pt. Plan to discharge home with oxycodone and valium for her pain. Advised follow up with PCP if symptoms persist. Discussed worrisome signs and symptoms with pt to to return to ED if these develop. Time: 14:21 Medications Administered Discontinued Medications Generic Name Dose Route Start Last Admin Trade Name Freq PRN Reason Stop Dose Admin Diazepam 2 mg 07/10/22 12:47 07/10/22 14:12 Diazepam 2 Mg Tablet PO 07/10/22 12:48 2 mg ONCE ONE Administration Ibuprofen 800 mg 07/10/22 12:47 07/10/22 14:11 Ibuprofen 800 Mg Tablet PO 07/10/22 12:48 800 mg ONCE ONE Administration Oxycodone HCl 5 mg 07/10/22 12:47 07/10/22 14:11 Oxycodone Hcl Immed Release 5 Mg Tablet PO 07/10/22 12:48 5 mg ONCE ONE Administration Discharge Plan Discharge Clinical Impression: Arthritis of left knee, Popliteal cyst Patient Disposition: Home, Self-Care Instructions: Osteoarthritis (ED), Bakers Cyst (ED) Prescriptions: New diazepam [Valium] 2 mg tablet 2 mg PO TID PRN (Reason: muscle spasm) Qty: 10 0RF ibuprofen 800 mg tablet 800 mg PO Q8H PRN (Reason: pain) Qty: 10 0RF oxycodone 5 mg tablet 5 mg PO Q6H PRN (Reason: pain) Qty: 10 0RF Rx Instructions: Partial Fill upon patient request. No Action cyclobenzaprine 10 mg tablet 10 mg PO BEDTIME PRN (Reason: muscle spasm) Qty: 7 0RF doxycycline hyclate 100 mg capsule 100 mg PO BID 7 Days Qty: 14 0RF lidocaine 5 % adhesive patch,medicated 1 patch topical DAILY PRN (Reason: pain) Qty: 15 0RF Rx Instructions: leave on most painful area for up to 12 hrs naproxen 500 mg tablet 500 mg PO BID PRN (Reason: pain) Qty: 14 0RF Rx Instructions: Take with food nystatin 100,000 unit/gram powder 1 appl topical BID Qty: 30 0RF baclofen 10 mg tablet 10 mg PO BID Qty: 10 0RF ketorolac 10 mg tablet 10 mg PO BID PRN (Reason: pain) Qty: 7 0RF Rx Instructions: Do not use this medication with naproxen, ibuprofen, NSAIDs metaxalone [Skelaxin] 800 mg tablet 800 mg PO TID PRN (Reason: muscle pain) Qty: 10 0RF hydrocodone-acetaminophen 5-325 mg tablet 1 tab PO Q6H PRN (Reason: pain) Qty: 14 0RF Rx Instructions: Narcotic, may cause drowsiness so no driving for 6 hours after taking acetaminophen 500 mg tablet 1,000 mg PO QID PRN (Reason: pain) Qty: 30 0RF metaxalone [Skelaxin] 800 mg tablet 800 mg PO TID PRN (Reason: muscle pain) Qty: 10 0RF hydrocodone-acetaminophen 5-325 mg tablet 1 tab PO Q6H PRN (Reason: pain) Qty: 14 0RF Rx Instructions: Narcotic, no driving for 6 hours after taking Referrals: Physician,Unknown J [Primary Care Provider] - (your pcp as needed) Stand Alone Forms: Work/School Release
[2022-07-10] MEDS: oxyCODONE HCl Immed Release 5 MG TABLET PO (14:11)
[2022-07-10] MEDS: Ibuprofen 800 MG TABLET PO (14:11)
[2022-07-10] MEDS: diazePAM 2 MG TABLET PO (14:12)
== END 2022-07-10 14:31 | disposition home or self-care (01) ==
PROVIDERS: Emergency Provider Emergency Medicine Emergency Medical Services
DX: M17.12 Unilateral primary osteoarthritis, left knee (principal); M71.22 Synovial cyst of popliteal space [Baker], left knee; R60.0 Localized edema
CPT/HCPCS: 73564; 93971; 99283; 99284

== ENCOUNTER 2023-05-07 13:11 | Emergency (ER) | payer OTHER, SELFPAY ==
--- NOTE | ~2023-05-07 | XR_ITS ---
EXAMINATION: XR CHEST CLINICAL INFORMATION: Cough COMPARISON: Previous chest x-ray September 2021 TECHNIQUE: Frontal view of the chest was obtained. FINDINGS: The cardiac and mediastinal contours are normal. The lungs are clear. No pleural effusion or pneumothorax. There are rods in the thoracic spine for treatment of scoliosis. XR/XR chest 1V IMPRESSION: No evidence for acute disease in the chest.
--- NOTE | 2023-05-07 13:43 | ED.URI ---
HPI - URI/Sore Throat General Chief Complaint: Upper Respiratory Symptoms Stated Complaint: Covid symptoms Time Seen by Provider: 05/07/23 14:07 Source: patient and RN notes reviewed Mode of arrival: ambulatory Limitations: no limitations History of Present Illness HPI Narrative: This is a 43-year-old female, with a past medical history of anemia, presenting to the emergency department for evaluation of cough, nasal congestion, body aches and chills x4 days. Patient states last week her sister who she lives with tested positive for COVID. She states that she spent a prolonged period of time with her while she wasn't wearing a mask. Patient reports that she has been taking [id number] cold and flu medications which has provided her with some relief. She denies any fevers, chest pain, shortness of breath, abdominal pain diarrhea constipation. She endorses some nausea, denies vomiting. Denies any other complaints or concerns at this time. MD elicited complaint: cough, sore throat, rhinorrhea and nasal congestion Onset (ago): day(s) Consistency: constant Severity: moderate Description of mucous: clear Able to tolerate fluids by mouth: Yes Exacerbating factors: nothing Relieving factors: OTC cold medicine Context: sick contacts Associated symptoms: chills, headache, rhinorrhea, nasal congestion, sore throat, cough and nausea Treatments prior to arrival: cold medicine Related Data Previous Rx's Medication Instructions Recorded cyclobenzaprine 10 mg tablet 10 mg PO BEDTIME PRN muscle spasm 07/20/21 #7 tabs doxycycline hyclate 100 mg capsule 100 mg PO BID 7 days #14 caps 07/20/21 lidocaine 5 % topical patch 1 patch topical DAILY PRN pain #15 07/20/21 ea naproxen 500 mg tablet 500 mg PO BID PRN pain #14 tabs 07/20/21 nystatin 100,000 unit/gram topical 1 appl topical BID #30 grams 07/20/21 powder acetaminophen 500 mg tablet 1,000 mg (2 x 500 mg) PO QID PRN 10/22/21 pain #30 tabs hydrocodone 5 mg-acetaminophen 325 1 tab PO Q6H PRN pain #14 tabs 10/22/21 mg tablet hydrocodone 5 mg-acetaminophen 325 1 tab PO Q6H PRN pain #14 tabs 10/22/21 mg tablet metaxalone 800 mg tablet (Skelaxin) 800 mg PO TID PRN muscle pain #10 10/22/21 tabs metaxalone 800 mg tablet (Skelaxin) 800 mg PO TID PRN muscle pain #10 10/22/21 tabs baclofen 10 mg tablet 10 mg PO BID #10 tabs 06/05/22 ketorolac 10 mg tablet 10 mg PO BID PRN pain #7 tabs 06/05/22 diazepam 2 mg tablet (Valium) 2 mg PO TID PRN muscle spasm #10 07/10/22 tabs ibuprofen 800 mg tablet 800 mg PO Q8H PRN pain #10 tabs 07/10/22 oxycodone 5 mg tablet 5 mg PO Q6H PRN pain #10 tabs 07/10/22 acetaminophen 500 mg tablet 500 mg PO Q6H PRN pain #45 tabs 05/07/23 (Tylenol Extra Strength) ibuprofen 600 mg tablet 600 mg PO Q6H PRN fever or pain 05/07/23 #45 tabs Allergies Allergy/AdvReac Type Severity Reaction Status Date / Time No Known Allergies Allergy Verified 08/23/21 15:25 [No Known Allergies*] Review of Systems Review of Systems: Yes all other systems are reviewed and are negative Constitutional: Constitutional: Reports as per [facility] Past Medical History Surgical History History of back surgery History of hip surgery Social History Social History Patient Tobacco Use Status: Never used Tobacco Advance Directives: No Physical Exam Vital Signs: Vital Signs: Last Vital Signs Temp 98.0 F 05/07/23 13:44 Pulse 80 05/07/23 13:44 Resp 18 05/07/23 13:44 BP 125/77 05/07/23 13:44 Pulse Ox 98 05/07/23 13:44 O2 Del Method Room Air 05/07/23 13:44 BMI result Body Mass Index 36.3 Const: General: cooperative, comfortable and no acute distress Orientation/consciousness: patient oriented x3 Limitations: no limitations HEENT: Head: Yes normal to inspection, Yes normocephalic and Yes atraumatic Ears: hearing grossly normal bilaterally and TM's normal bilaterally General nose exam: Normal external nose present Face and sinus: Yes normal facial exam Mouth: Normal oral and palatal mucosa present, oropharynx normal and moist mucous membranes Throat: Yes posterior oropharynx normal Eyes: General: appearance normal, both eyes and all related structures Eyelids: Yes eyelids normal Conjunctivae: conjunctivae normal Sclerae: sclerae normal Pupils: Equal, round and reactive pupils present EOM: EOMs intact bilaterally Neck: Neck: Yes normal visual inspection, Yes full ROM and Yes no lymphadenopathy Lymphatic: no lymphadenopathy noted Chest: Chest palpation & inspection: normal inspection of the chest Resp: Effort & Inspection: normal respiratory effort and able to speak in complete sentences Auscultation: clear to auscultation bilaterally, no crackles, no rales, no rhonchi and no wheezes Cardio: Rate: regular rate Rhythm: regular rhythm Heart sounds: S1 normal heart sound present and S2 normal heart sound present GI: Inspection: Yes normal to inspection Skin: General skin exam: no rashes or lesions noted Trauma: no lacerations or abrasions Wounds: no wounds Neuro: General: patient oriented x3 and moves all extremities Cranial nerves: Yes Equal, round and reactive pupils present Extrem: General: Yes normal to inspection Right upper extremity: normal to inspection Left upper extremity: normal to inspection Right lower extremity: normal to inspection Left lower extremity: normal to inspection Course Course Course Narrative: RME: 43yo F c/o myalgias, body aches, sneezing, cough, ANDINO, nausea, ear pain & sore throat x few days. Admits tested negative for COVID-19 on Saturday, but sister tested positive on Sat last week. Denies fever, vomiting. +congested, afebrile iral testing, Rapid strep & CXR ordered Full HPI, ROS and PE to be performed by primary ED provider. Medical Decision Making Medical Decision Making [facility] Narrative: 43-year-old female presenting to the emergency department for evaluation of body aches, chills, cough x4 days. Known COVID exposure. On arrival, vital signs within normal limits. Lungs are clear to auscultation bilaterally, oropharynx is unremarkable, TMs unremarkable. Differential diagnoses include upper respiratory infection, COVID, influenza, bronchitis. Chest x-ray was obtained which did not reveal any pneumonia. Patient tested positive for COVID. Discussed results patient, discharged on ibuprofen and Tylenol given return precautions. Patient understands and agrees with plan. Stable for discharge Differential Diagnosis Differential Diagnoses: The differential diagnosis associated with the presentation includes See above Lab Data MDM Lab Attestation statement: I reviewed the patient's lab results. See above Labs: Lab Results 05/07/23 Range/Units 13:49 COVID-19 (PAIGE) Positive A (Negative) COVID-19 Clin Com See Note Influenza Type A (SALAZAR) Negative (Negative) Influenza Type B (SALAZAR) Negative (Negative) Influenza A & B Note See Note S. pyogenes GrpA SALAZAR Negative (Negative) Radiology Impression Discussion of test interpretation with radiology: I have reviewed the radiologist's reading. Radiologist Impression: EXAMINATION: XR CHEST CLINICAL INFORMATION: Cough COMPARISON: Previous chest x-ray September 2021 TECHNIQUE: Frontal view of the chest was obtained. FINDINGS: The cardiac and mediastinal contours are normal. The lungs are clear. No pleural effusion or pneumothorax. There are rods in the thoracic spine for treatment of scoliosis. XR/XR chest 1V IMPRESSION: No evidence for acute disease in the chest. Discharge Plan Discharge Clinical Impression: COVID-19 Patient Disposition: Home, Self-Care Additional Instructions: You tested positive for COVID today. Your x-ray did not show pneumonia. Please alternate between Tylenol and Motrin as directed as needed for pain and symptoms. You may take ibuprofen 600mg every 6 hours and tylenol 500mg-1000mg every 6-8 hours. Please separate ibuprofen and tylenol dosing by two hours. Drink plenty of fluids get plenty of rest. If any new or worsening symptoms occur including but not limited to chest pain, shortness of breath, please return for re-evaluation. Please follow CDC guidelines for COVID quarantine precautions. Prescriptions: New ibuprofen 600 mg tablet 600 mg PO Q6H PRN (Reason: fever or pain) Qty: 45 0RF acetaminophen [Tylenol Extra Strength] 500 mg tablet 500 mg PO Q6H PRN (Reason: pain) Qty: 45 0RF No Action cyclobenzaprine 10 mg tablet 10 mg PO BEDTIME PRN (Reason: muscle spasm) Qty: 7 0RF doxycycline hyclate 100 mg capsule 100 mg PO BID 7 Days Qty: 14 0RF lidocaine 5 % adhesive patch,medicated 1 patch topical DAILY PRN (Reason: pain) Qty: 15 0RF Rx Instructions: leave on most painful area for up to 12 hrs naproxen 500 mg tablet 500 mg PO BID PRN (Reason: pain) Qty: 14 0RF Rx Instructions: Take with food nystatin 100,000 unit/gram powder 1 appl topical BID Qty: 30 0RF baclofen 10 mg tablet 10 mg PO BID Qty: 10 0RF ketorolac 10 mg tablet 10 mg PO BID PRN (Reason: pain) Qty: 7 0RF Rx Instructions: Do not use this medication with naproxen, ibuprofen, NSAIDs diazepam [Valium] 2 mg tablet 2 mg PO TID PRN (Reason: muscle spasm) Qty: 10 0RF ibuprofen 800 mg tablet 800 mg PO Q8H PRN (Reason: pain) Qty: 10 0RF oxycodone 5 mg tablet 5 mg PO Q6H PRN (Reason: pain) Qty: 10 0RF Rx Instructions: Partial Fill upon patient request. metaxalone [Skelaxin] 800 mg tablet 800 mg PO TID PRN (Reason: muscle pain) Qty: 10 0RF hydrocodone-acetaminophen 5-325 mg tablet 1 tab PO Q6H PRN (Reason: pain) Qty: 14 0RF Rx Instructions: Narcotic, may cause drowsiness so no driving for 6 hours after taking acetaminophen 500 mg tablet 1,000 mg PO QID PRN (Reason: pain) Qty: 30 0RF metaxalone [Skelaxin] 800 mg tablet 800 mg PO TID PRN (Reason: muscle pain) Qty: 10 0RF hydrocodone-acetaminophen 5-325 mg tablet 1 tab PO Q6H PRN (Reason: pain) Qty: 14 0RF Rx Instructions: Narcotic, no driving for 6 hours after taking Stand Alone Forms: Work/School Release
[2023-05-07 13:44] VITALS: BP 125/77; PULSE 80; RESP 18; TEMP 36.7; O2SAT 98; BMI 36.3
[2023-05-07 14:14] LABS: IDNOW Serial# 9DB6401D
[2023-05-07 14:15] LABS: COVID-19 Test Positive (Negative)
[2023-05-07 14:17] LABS: IDNOW Serial# BCCEAD1C; Influenza A Negative (Negative); Influenza B2 Negative (Negative)
[2023-05-07 14:35] LABS: IDNOW Serial# 08D9AD1C; Strep A Nucleic Acid Negative (Negative)
== END 2023-05-07 16:23 | disposition home or self-care (01) ==
PROVIDERS: Physician Assistant; Emergency Provider Emergency Medicine
DX: U07.1 COVID-19 (principal); R05.9 Cough, unspecified
CPT/HCPCS: 71045; 87502; 87635; 87651; 99283; 99284

== ENCOUNTER 2023-09-01 17:13 | Emergency (ER) | payer SELFPAY ==
[2023-09-01 17:19] VITALS: BP 124/81; PULSE 69; RESP 18; TEMP 36.4; O2SAT 99; BMI 35.8
--- NOTE | 2023-09-01 17:23 | ED_ITS ---
HPI - General Adult General Chief complaint: Abdominal Pain Stated complaint: abd pain Time Seen by Provider: 09/01/23 19:34 Source: patient Mode of arrival: ambulatory Limitations: no limitations History of Present Illness HPI narrative: Patient is a 43-year-old female with history of gastric bypass in 2007 presenting to the emergency department with complaint of epigastric pain for the past week as well as decreased appetite. She denies any vomiting, does report loose stools intermittently. Denies fevers. Denies any sick contacts. Reports pain increased yesterday and today. Denies chest pain, palpitations, shortness of breath, cough. Took Pepto Bismol without relief. MD complaint: epigastric pain Onset (ago): week(s) Location: abdomen Radiation: non-radiation Severity scale (1-10): 4 Quality: burning Pain Consistency: intermittent Relieving factors: none Exacerbating factors: none Associated symptoms: loss of appetite Treatments prior to arrival: other Related Data Previous Rx's Medication Instructions Recorded cyclobenzaprine 10 mg tablet 10 mg PO BEDTIME PRN muscle spasm 07/20/21 #7 tabs doxycycline hyclate 100 mg capsule 100 mg PO BID 7 days #14 caps 07/20/21 lidocaine 5 % topical patch 1 patch topical DAILY PRN pain #15 07/20/21 ea naproxen 500 mg tablet 500 mg PO BID PRN pain #14 tabs 07/20/21 nystatin 100,000 unit/gram topical 1 appl topical BID #30 grams 07/20/21 powder acetaminophen 500 mg tablet 1,000 mg (2 x 500 mg) PO QID PRN 10/22/21 pain #30 tabs hydrocodone 5 mg-acetaminophen 325 1 tab PO Q6H PRN pain #14 tabs 10/22/21 mg tablet hydrocodone 5 mg-acetaminophen 325 1 tab PO Q6H PRN pain #14 tabs 10/22/21 mg tablet metaxalone 800 mg tablet (Skelaxin) 800 mg PO TID PRN muscle pain #10 10/22/21 tabs metaxalone 800 mg tablet (Skelaxin) 800 mg PO TID PRN muscle pain #10 10/22/21 tabs baclofen 10 mg tablet 10 mg PO BID #10 tabs 06/05/22 ketorolac 10 mg tablet 10 mg PO BID PRN pain #7 tabs 06/05/22 diazepam 2 mg tablet (Valium) 2 mg PO TID PRN muscle spasm #10 07/10/22 tabs ibuprofen 800 mg tablet 800 mg PO Q8H PRN pain #10 tabs 07/10/22 oxycodone 5 mg tablet 5 mg PO Q6H PRN pain #10 tabs 07/10/22 acetaminophen 500 mg tablet 500 mg PO Q6H PRN pain #45 tabs 05/07/23 (Tylenol Extra Strength) ibuprofen 600 mg tablet 600 mg PO Q6H PRN fever or pain 05/07/23 #45 tabs omeprazole 20 mg capsule,delayed 20 mg PO DAILY #7 caps 09/01/23 release Allergies Allergy/AdvReac Type Severity Reaction Status Date / Time No Known Allergies Allergy Verified 08/23/21 15:25 [No Known Allergies*] Review of Systems 2 Review of Systems: As per HPI. Yes all other systems are reviewed and are negative Constitutional: Constitutional: Reports as per HPI [facility] Past Medical History Onset Date is defined in the Problem List Problems that require an onset date and time if occurred within 24 hrs of arrival to the ED Aortic Dissection and Rupture; Neurologic impairment; Cardiopulmonary Arrest; Endotracheal Intubation; Insertion or Replacement of Mechanical Circulatory Assist Device Surgical History History of back surgery History of hip surgery Social History Social History Alcohol intake: current Alcohol intake frequency: holidays/special occasions only Patient Tobacco Use Status: Never used Tobacco Smoked in Last 30 Days: No Use of substances other than those prescribed or required for medical reasons: No Advance Directives: No Advance Directives Information Provided: No Patient : No Physical Exam ED Vital Signs: Vital Signs - 24 hr 09/01/23 17:19 09/01/23 20:05 Temperature 97.5 F 98.2 F Pulse Rate 69 57 Respiratory Rate 18 14 Blood Pressure 124/81 125/65 Pulse Oximetry 99 100 Oxygen Delivery Method Room Air Room Air BMI result Body Mass Index 35.8 Vital signs have been reviewed and appear to be correct. Blood pressure normal. Heart rate normal. Respiratory rate normal. Temperature normal. Oxygen saturation normal. Const General: cooperative, healthy appearing and no acute distress Orientation/consciousness: oriented to person, oriented to place, oriented to time and patient oriented x3 Limitations: no limitations HENMT Head: Yes normocephalic and Yes atraumatic Ears: external ears normal General nose exam: Normal external nose present Face and sinus: Yes face symmetric Mouth: oropharynx normal and moist mucous membranes Throat: Yes uvula midline Eyes Pupils: Equal, round and reactive pupils present Neck Neck: Yes normal visual inspection and Yes supple Resp Effort & Inspection: normal respiratory effort and able to speak in complete sentences Auscultation: clear to auscultation bilaterally Cardio Rate: regular rate Rhythm: regular rhythm Heart sounds: S1 normal heart sound present and S2 normal heart sound present GI Palpation (GI): Soft to palpation and nontender Auscultation: normoactive bowel sounds General: Yes no CVA tenderness Back/Spine/Pelvis Back: no CVA tenderness Skin General skin exam: elasticity normal and turgor normal Neuro General: oriented to person, oriented to place, oriented to time, patient oriented x3, moves all extremities, no focal motor deficits and CN's II-XI intact bilaterally Cranial nerves: Yes Equal, round and reactive pupils present Cognition (Neuro): normal cognition Extrem General: Yes full ROM, Yes no pedal edema and Yes no calf tenderness Psych Mental Status: mental status grossly normal Affect: normal affect Thought process: Normal thought process present Course Course Course Narrative: RME: 44 yold female presents to the ED for epigastric abdominal pain with nausea and vomitting for one week. Patient denies any lower abdominal pain. labs and US ordered Medical Decision Making Medical Decision Making MDM Narrative: Patient is a 43-year-old female with history of gastric bypass in 2007 presenting to the emergency department with complaint of epigastric pain for the past week as well as decreased appetite. On exam patient is awake, A+Ox3, VS WNL, afebrile, normal neurological exam without focal deficits, physical exam findings as above. Given reported symptoms and physical exam findings, initial differential includes gastritis, GERD, PUD, viral illness, UTI. Labs notable for no leukocytosis, no anemia, no significant electrolyte abnormalities, LFTs normal, negative troponin, negative hCG. No evidence of infection on UA. Ultrasound notable for unremarkable RUQ. My interpretation is in agreement with the radiologist's interpretation. EKG shows sinus bradycardia with sinus arrhythmia and incomplete RBBB consistent with prior. Unlikely ACS. Will start patient on omeprazole and refer patient to GI for further evaluation and management. Instructed patient to follow up with PCP as well. Return precautions discussed at bedside. Patient verbalized understanding of and agreement with plan. Differential Diagnosis Differential Diagnoses: The differential diagnosis associated with the presentation includes As per [facility] Lab Data [facility] Lab Attestation statement: I reviewed the patient's lab results. As per [facility]. 09/01/23 19:32 09/01/23 19:32 Labs: Lab Results 09/01/23 09/01/23 Range/Units 18:40 19:32 WBC 7.9 (4.8-10.8) X10*3/uL RBC 4.54 (4.20-5.50) X10*6/uL Hgb 13.1 (12.0-16.0) g/dl Hct 39.9 (37.0-47.0) % MCV 87.9 (80.0-98.0) fL MCH 28.9 (27.0-33.0) pg MCHC 32.8 (31.0-35.0) g/dl RDW 14.4 (11.0-16.0) % Plt Count 289 (160-400) X10*3/uL MPV 10.8 (9.4-12.3) fL Immature Gran % (Auto) 0.1 (0.0-0.4) % Neut % (Auto) 66.7 (45-73) % Lymph % (Auto) 26.1 (20-40) % [place] % (Auto) 4.4 (2-11) % Eos % (Auto) 2.4 (0-4) % Baso % (Auto) 0.3 (0-2) % Lymph # (Auto) 2.1 (1.2-4.9) X10*3/uL [place] # (Auto) 0.4 (0.1-1.2) X10*3/uL Eos # (Auto) 0.2 (0.0-0.4) X10*3/uL Baso # (Auto) 0.0 (0.0-0.2) X10*3/uL Abs Immat Gran (auto) 0.01 (0.00-0.03) X10*3/uL Absolute Neuts (auto) 5.3 (2.0-8.3) x10*3/uL Absolute Nucleated RBC 0.000 (0.0-0.012) X10*3/uL Nucleated RBC % (auto) 0.0 (0.0-0.2) /100WBC PT 12.8 (11.1-13.3) SEC INR 1.1 (0.9-1.1) APTT 32.1 (26.0-36.4) SEC Sodium 141 (135-145) mmol/L Potassium 3.6 (3.3-5.1) mmol/L Chloride 110 H (96-108) mmol/L Carbon Dioxide 26 (22-29) mmol/L Anion Gap 9 L (12-20) BUN 10 (9-16) mg/dL Creatinine 0.60 (0.5-1.4) mg/dL Estim Creat Clear Calc 132.7 Estimated GFR > 60 Random Glucose 78 (60-115) mg/dL Calcium 8.5 D (8.4-10.2) mg/dL Total Bilirubin 0.2 (0.0-1.0) mg/dL AST 28 (5-31) U/L ALT 27 (0-31) U/L Alkaline Phosphatase 70 (39-117) U/L Troponin I High Sens < 2.7 (<3.5-17.0) ng/L Total Protein 6.6 (6.5-8.0) g/dL Albumin 3.8 (3.5-5.0) g/dL Lipase 20 (8-78) U/L Beta HCG, Quant < 2 mIU/mL Urine Color Yellow Urine Appearance Clear Urine pH 6.5 (5.0-9.0) Ur Specific [place] <= 1.005 (1.005-1.025) Urine Protein Negative (Neg-Trace) mg/dL Urine Glucose (UA) Negative (Negative) mg/dL Urine Ketones Negative (Negative) mg/dL Urine Blood Negative (Negative) Urine Nitrite Negative (Negative) Ur Leukocyte Esterase Trace H (Negative) Urine RBC 0-2 (0-2) /HPF Urine WBC 0-5 (0-5) /HPF Ur Squamous Epith Cells 0-2 (0-2) /HPF Urine Bacteria None Seen (None Seen) Hyaline Casts 0-2 (0-2) /LPF Urine Test NEGATIVE (NEGATIVE) Independent Interpretation I performed an independent interpretation of an: EKG (Sinus bradycardia with sinus arrhythmia, incomplete RBBB, rate 53 beats per minute, normal ID and QT intervals, consistent with previous EKG) and Ultrasound Interpretation: No right upper quadrant abnormalities Radiology Impression Discussion of test interpretation with radiology: I have reviewed the radiologist's reading. Radiologist Impression: US/US abdomen limited IMPRESSION: Unremarkable right upper quadrant ultrasound. External Record Review External record reviewed: Inpatient record, Office record and Outpatient record Prescription Management I considered prescription management with: Other Discharge Plan Discharge Clinical Impression: Gastritis Patient Disposition: Home, Self-Care Instructions: Gastritis (DC) Additional Instructions: You were evaluated in the emergency department today for epigastric pain, nausea and decreased appetite which is most likely due to irritation of the lining of your stomach. You are being prescribed omeprazole for your symptoms. Avoid spicy or acidic foods. Please follow up with your primary care physician within two days. You are also being referred to Gastroenterology for further evaluation and management of your symptoms, please call their office to schedule an appointment. Return to the emergency department if you experience shortness of breath, worsening or uncontrolled abdominal pain, chest pain, light headedness, faiting, persistent nausea and vomiting, bloody vomit or stools, black, tarry stools, or any other concerning symptoms. Prescriptions: New omeprazole 20 mg capsule,delayed release(DR/EC) 20 mg PO DAILY Qty: 7 0RF No Action cyclobenzaprine 10 mg tablet 10 mg PO BEDTIME PRN (Reason: muscle spasm) Qty: 7 0RF doxycycline hyclate 100 mg capsule 100 mg PO BID 7 Days Qty: 14 0RF lidocaine 5 % adhesive patch,medicated 1 patch topical DAILY PRN (Reason: pain) Qty: 15 0RF Rx Instructions: leave on most painful area for up to 12 hrs naproxen 500 mg tablet 500 mg PO BID PRN (Reason: pain) Qty: 14 0RF Rx Instructions: Take with food nystatin 100,000 unit/gram powder 1 appl topical BID Qty: 30 0RF baclofen 10 mg tablet 10 mg PO BID Qty: 10 0RF ketorolac 10 mg tablet 10 mg PO BID PRN (Reason: pain) Qty: 7 0RF Rx Instructions: Do not use this medication with naproxen, ibuprofen, NSAIDs diazepam [Valium] 2 mg tablet 2 mg PO TID PRN (Reason: muscle spasm) Qty: 10 0RF ibuprofen 800 mg tablet 800 mg PO Q8H PRN (Reason: pain) Qty: 10 0RF oxycodone 5 mg tablet 5 mg PO Q6H PRN (Reason: pain) Qty: 10 0RF Rx Instructions: Partial Fill upon patient request. metaxalone [Skelaxin] 800 mg tablet 800 mg PO TID PRN (Reason: muscle pain) Qty: 10 0RF hydrocodone-acetaminophen 5-325 mg tablet 1 tab PO Q6H PRN (Reason: pain) Qty: 14 0RF Rx Instructions: Narcotic, may cause drowsiness so no driving for 6 hours after taking acetaminophen 500 mg tablet 1,000 mg PO QID PRN (Reason: pain) Qty: 30 0RF metaxalone [Skelaxin] 800 mg tablet 800 mg PO TID PRN (Reason: muscle pain) Qty: 10 0RF hydrocodone-acetaminophen 5-325 mg tablet 1 tab PO Q6H PRN (Reason: pain) Qty: 14 0RF Rx Instructions: Narcotic, no driving for 6 hours after taking ibuprofen 600 mg tablet 600 mg PO Q6H PRN (Reason: fever or pain) Qty: 45 0RF acetaminophen [Tylenol Extra Strength] 500 mg tablet 500 mg PO Q6H PRN (Reason: pain) Qty: 45 0RF Referrals: [facility] [Provider Group] Interventions: ED Discharge Assessment Last Done: 09/02/23 09:13 Discharge Date/Time: 09/01/23 22:00
--- NOTE | 2023-09-01 19:19 | PC.NURSE ---
acknowledged orders in error- wrong patient.
[2023-09-01 20:05] VITALS: BP 125/65; PULSE 57; RESP 14; TEMP 36.8; O2SAT 100
[2023-09-01 21:41] VITALS: BP 119/53; PULSE 56; RESP 16; TEMP 36.9; O2SAT 95
== END 2023-09-01 22:00 | disposition home or self-care (01) ==
PROVIDERS: Emergency Provider Student in an Organized Health Care Education/Training Program
DX: K29.70 Gastritis, unspecified, without bleeding (principal); R94.31 Abnormal electrocardiogram [ECG] [EKG]; R10.13 Epigastric pain; R11.0 Nausea; R63.0 Anorexia
CPT/HCPCS: 36415; 76705; 80053; 81001; 81025; 83690; 84484; 84702; 85025; 85610; 85730; 93005; 99284

== ENCOUNTER → 2023-09-01 17:22 | Outpatient (BNV) | payer SELFPAY | PROVIDERS: Emergency Provider Student in an Organized Health Care Education/Training Program; Visit Provider Internal Medicine Cardiovascular Disease | DX: R00.1 Bradycardia, unspecified (principal); R94.31 Abnormal electrocardiogram [ECG] [EKG] | CPT/HCPCS: 93010 ==

== ENCOUNTER 2025-04-12 17:54 | Emergency (ER) | payer OTHER, SELFPAY ==
[2025-04-12 17:59] VITALS: BP 130/73; PULSE 89; RESP 18; TEMP 36.1; O2SAT 98; BMI 28.9
--- NOTE | 2025-04-12 18:00 | ED_ITS ---
HPI - General Adult General Chief complaint: General Medical Stated complaint: pelvic pain Time Seen by Provider: 04/12/25 20:47 Source: patient Mode of arrival: ambulatory Limitations: no limitations History of Present Illness ED Provider: Kishan Collins HPI narrative: 45 yold female healthy presents to the ED for vaginal burning, dysuria, and itchiness. patient states no nausea, vomitting, diarrhea, fever, chills, flank pain, or abdominal pain. Patient states on new Sexual partners. Related Data Previous Rx's ?Medication ?Instructions ?Recorded cyclobenzaprine 10 mg tablet 10 mg PO BEDTIME PRN musc le spasm 07/20/21 #7 tabs doxycycline hyclate 100 mg capsule 100 mg PO BID 7 day s #14 caps 07/20/21 lidocaine 5 % topical patch 1 patch topical DAILY PRN pain #15 07/20/21 ea naproxen 500 mg tablet 500 mg PO BID PRN pain #14 t abs 07/20/21 nystatin 100,000 unit/gram topical 1 appl topical BID #30 grams 07/20/21 powder acetaminophen 500 mg tablet 1,000 mg (2 x 500 mg) PO Q ID PRN 10/22/21 pain #30 tabs hydrocodone 5 mg-acetaminophen 325 1 tab PO Q6H PRN pa in #14 tabs 10/22/21 mg tablet hydrocodone 5 mg-acetaminophen 325 1 tab PO Q6H PRN pa in #14 tabs 10/22/21 mg tablet metaxalone 800 mg tablet (Skelaxin) 800 mg PO TID PRN muscle pain #10 10/22/21 tabs metaxalone 800 mg tablet (Skelaxin) 800 mg PO TID PRN muscle pain #10 10/22/21 tabs baclofen 10 mg tablet 10 mg PO BID #10 tabs ketorolac 10 mg tablet 10 mg PO BID PRN pain #7 tab s 06/05/22 diazepam 2 mg tablet (Valium) 2 mg PO TID PRN muscle s pasm #10 07/10/22 tabs ibuprofen 800 mg tablet 800 mg PO Q8H PRN pain #10 t abs 07/10/22 oxycodone 5 mg tablet 5 mg PO Q6H PRN pain #10 tab s 07/10/22 acetaminophen 500 mg tablet 500 mg PO Q6H PRN pain #45 tabs 05/07/23 (Tylenol Extra Strength) ibuprofen 600 mg tablet 600 mg PO Q6H PRN fever or p ain 05/07/23 #45 tabs omeprazole 20 mg capsule,delayed 20 mg PO DAILY #7 cap s 09/01/23 release cephalexin 500 mg capsule 500 mg PO QID 7 days #28 cap s 04/12/25 naproxen 500 mg tablet 500 mg PO BID PRN pain #14 t abs 04/12/25 phenazopyridine 200 mg tablet 200 mg PO TID 6 doses #6 tabs 04/12/25 (Pyridium) Allergies Allergy/AdvReac Type Severity Reaction Status Date / Time No Known Allergies (No Known Allergy Verified 04/12/25 18:03 Allergies*) Review of Systems Review of Systems: vaginal burning, dysuria, and odor Yes all other systems are reviewed and are negative [facility] Past Medical History Surgical History History of back surgery History of hip surgery Social History Social History Alcohol intake: current Alcohol intake frequency: holidays/special occasions only Patient Tobacco Use Status: Never used Tobacco Advance Directives: No Advance Directives Information Provided: No Physical Exam ED Vital Signs: Vital Signs - 24 hr 04/12/25 17:59 Temperature 96.9 F Pulse Rate 89 Respiratory Rate 18 Blood Pressure 130/73 Pulse Oximetry 98 Oxygen Delivery Method Room Air BMI result Body Mass Index 28.9 Const General: cooperative, healthy appearing, comfortable, no acute distress, well developed, alert, awake, Physically active and acute distress Orientation/consciousness: patient oriented x3 HENMT Head: Yes normal to inspection, Yes No palpable skull fracture present and Yes normocephalic Eyes General: appearance normal, both eyes and all related structures Neck Neck: Yes normal visual inspection, Yes full ROM, Yes no lymphadenopathy, Yes no meningeal signs, Yes trachea midline, Yes supple, No anterior neck swelling and No tender Chest Chest palpation & inspection: normal inspection of the chest and normal palpation of entire chest wall Resp Effort & Inspection: normal respiratory effort and able to speak in complete sentences Auscultation: clear to auscultation bilaterally Cardio Jugular venous distension: no JVD Heart sounds: S1 normal heart sound present and S2 normal heart sound present GI Inspection: Yes normal to inspection Palpation (GI): Soft to palpation, not firm, nontender, no guarding and not rigid General: Yes no CVA tenderness Back/Spine/Pelvis Back: no CVA tenderness and No back tenderness Skin General skin exam: no rashes or lesions noted, elasticity normal and turgor normal Neuro General: patient oriented x3, gait normal, tone normal, moves all extremities, Normal light touch and pain sensation, no meningeal signs, no focal motor deficits and CN's II-XI intact bilaterally Extrem General: Yes normal to inspection, Yes full ROM and Yes capillary refill normal Psych Appearance: grossly normal, well kempt and not disheveled Course Course Course Narrative: This is a Rapid Medical Examination (RME) performed by Jillian Flores PA-C in triage. Full HPI, ROS, assessment and treatment plan per primary provider in the Main ED. Hx: 45 yo F here for eval of vaginal pain/burning and itching x1 week. assoc mal odor. denies any new sexual partners. no vaginal discharge, bleeding, or open areas of skin. no fevers. lmp 03/09/25. PE/vitals: area not visualized in triage Plan: UA, CTNG, u preg Medical Decision Making Medical Decision Making [facility] Narrative: 45-year-old female presents to ED for vaginal burning, dysuria, and odor. Patient denies any vaginal lesions or vaginal discharge. Patient denies any new sexual partners. Patient will prefer to follow up outpatient with OBGYN and be discharged with oral antibiotics due to long wait instead of waiting for pelvic exam. Chlamydia gonorrhea pending. Patient was states she will have pelvic exa m and rest of STD swabs with OBGYN. Patient explained worrisome signs and informed return to the ED immediately. Presently not suspecting pylenoprhirtis, kidneystones, ectopic , or any other life threatening etiologies. Differential Diagnosis Differential Diagnoses: The differential diagnosis associated with the presentation includes (UTI, STI, vaginitis) Admission/Observation Consideration of admission/observation: Escalation of care including admission/observation considered Lab Data [facility] Lab Attestation statement: I reviewed the patient's lab results. Labs: Lab Results 04/12/25 Range/Units 19:16 Urine Color Yellow Urine Appearance Clear Urine pH 5.5 (5.0-9.0) Ur Specific Critz 1.010 (1.005-1.025) Urine Protein Negative (Neg-Trace) mg/dL Urine Glucose (UA) Negative (Negative) mg/dL Urine Ketones Negative (Negative) mg/dL Urine Blood Trace H (Negative) Urine Nitrite Negative (Negative) Ur Leukocyte Esterase Small (1+) H (Negative) Urine RBC 6-10 H (0-2) /HPF Urine WBC 11-20 H (0-5) /HPF Ur Squamous Epith Cells 3-5 (0-2) /HPF Urine Bacteria 1+ (None Seen) Hyaline Casts 0-2 (0-2) /LPF Urine Test NEGATIVE (NEGATIVE) Ur N gonorrhoeae DNA (PCR) NOT DETECTED (Not Detect.) Ur Chlamydia DNA (PCR) NOT DETECTED (Not Detect.) Independent Historian Clinical information obtained from an independent historian. History obtained from or confirmed by: Other (Patient is) Prescription Management I considered prescription management with: Pain Medication and Antibiotic Discharge Plan Discharge Clinical Impression: UTI (urinary tract infection) Patient Disposition: Home, Self-Care Instructions: Urinary Tract Infection in Women (ED) Additional Instructions: Recommend follow-up with your primary care provider/OBGYN for pelvic exam and further evaluation ( possibe STI swabs). Return to the ED immediately for any abdominal pain, nausea, vomiting, flank pain, fever, vaginal discharge, or any other concerning symptoms. . You will be due for with oral antibiotics for UTI. Prescriptions: New cephalexin 500 mg capsule 500 mg PO QID 7 Days Qty: 28 0RF phenazopyridine [Pyridium] 200 mg tablet 200 mg PO TID Qty: 6 0RF naproxen 500 mg tablet 500 mg PO BID PRN (Reason: pain) Qty: 14 0RF No Action cyclobenzaprine 10 mg tablet 10 mg PO BEDTIME PRN (Reason: muscle spasm) Qty: 7 0RF doxycycline hyclate 100 mg capsule 100 mg PO BID 7 Days Qty: 14 0RF lidocaine 5 % adhesive patch,medicated 1 patch topical DAILY PRN (Reason: pain) Qty: 15 0RF Rx Instructions: leave on most painful area for up to 12 hrs naproxen 500 mg tablet 500 mg PO BID PRN (Reason: pain) Qty: 14 0RF Rx Instructions: Take with food nystatin 100,000 unit/gram powder 1 appl topical BID Qty: 30 0RF baclofen 10 mg tablet 10 mg PO BID Qty: 10 0RF ketorolac 10 mg tablet 10 mg PO BID PRN (Reason: pain) Qty: 7 0RF Rx Instructions: Do not use this medication with naproxen, ibuprofen, NSAIDs diazepam [Valium] 2 mg tablet 2 mg PO TID PRN (Reason: muscle spasm) Qty: 10 0RF ibuprofen 800 mg tablet 800 mg PO Q8H PRN (Reason: pain) Qty: 10 0RF oxycodone 5 mg tablet 5 mg PO Q6H PRN (Reason: pain) Qty: 10 0RF Rx Instructions: Partial Fill upon patient request. metaxalone [Skelaxin] 800 mg tablet 800 mg PO TID PRN (Reason: muscle pain) Qty: 10 0RF hydrocodone-acetaminophen 5-325 mg tablet 1 tab PO Q6H PRN (Reason: pain) Qty: 14 0RF Rx Instructions: Narcotic, may cause drowsiness so no driving for 6 hours after taking acetaminophen 500 mg tablet 1,000 mg PO QID PRN (Reason: pain) Qty: 30 0RF metaxalone [Skelaxin] 800 mg tablet 800 mg PO TID PRN (Reason: muscle pain) Qty: 10 0RF hydrocodone-acetaminophen 5-325 mg tablet 1 tab PO Q6H PRN (Reason: pain) Qty: 14 0RF Rx Instructions: Narcotic, no driving for 6 hours after taking ibuprofen 600 mg tablet 600 mg PO Q6H PRN (Reason: fever or pain) Qty: 45 0RF acetaminophen [Tylenol Extra Strength] 500 mg tablet 500 mg PO Q6H PRN (Reason: pain) Qty: 45 0RF omeprazole 20 mg capsule,delayed release(DR/EC) 20 mg PO DAILY Qty: 7 0RF Stand Alone Forms: Work/School Release Interventions: ED Discharge Assessment Last Done: 04/12/25 21:33 Discharge Date/Time: 04/12/25 21:37 Print Language: Croatian
[2025-04-12 19:25] LABS: Appearance Urine Clear; Glucose Urine UA Negative (Negative); PH 5.5 (5.0-9.0); Specific Gravity - Urine 1.010 (1.005-1.025); UMIC TRIGGER UACC YES
[2025-04-12 19:26] LABS: UPreg QC Valid YES
[2025-04-12 19:28] LABS: UACC Culture Trigger YES
[2025-04-12 21:25] VITALS: BP 115/70; PULSE 69; RESP 17; TEMP 36.4; O2SAT 100
[2025-04-12 21:33] VITALS: BP 115/70; PULSE 69; RESP 17; TEMP 36.4; O2SAT 100
--- NOTE | 2025-04-12 21:33 | PC.NURSE ---
d/c from [facility] by provider.
[2025-04-12 21:53] LABS: CT PCR Urine NOT DETECTED (Not Detect.); NG PCR Urine NOT DETECTED (Not Detect.)
== END 2025-04-12 21:37 | disposition home or self-care (01) ==
PROVIDERS: Physician Assistant Medical; Emergency Provider Emergency Medicine
DX: N39.0 Urinary tract infection, site not specified (principal); R30.0 Dysuria
CPT/HCPCS: 81001; 81025; 87086; 87491; 87591; 99283

== ENCOUNTER 2025-06-02 17:27 | Emergency (ER) | payer OTHER, SELFPAY ==
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
[2025-06-02 17:49] VITALS: BP 118/56; PULSE 60; RESP 16; TEMP 36.7; O2SAT 98; BMI 29.3
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
[2025-06-02 19:35] VITALS: BP 118/56; PULSE 60; RESP 16; TEMP 36.7; O2SAT 98
== END 2025-06-02 19:36 | disposition home or self-care (01) ==
PROVIDERS: Emergency Provider Emergency Medicine Emergency Medical Services
DX: S29.012A Strain of muscle and tendon of back wall of thorax, initial encounter (principal); S39.012A Strain of muscle, fascia and tendon of lower back, initial encounter; V47.5XXA Car driver injured in collision with fixed or stationary object in traffic accident, initial encounter; Y93.89 Activity, other specified; Y92.488 Other paved roadways as the place of occurrence of the external cause; Y99.8 Other external cause status; Z87.39 Personal history of other diseases of the musculoskeletal system and connective tissue
CPT/HCPCS: 72072; 72100; 72125; 99282; 99284

== ENCOUNTER → 2025-06-02 17:52 | Outpatient (BNV) | payer OTHER, SELFPAY | PROVIDERS: Visit Provider Radiology Diagnostic Radiology | DX: M54.2 Cervicalgia (principal); S39.012A Strain of muscle, fascia and tendon of lower back, initial encounter; S29.012A Strain of muscle and tendon of back wall of thorax, initial encounter; V89.2XXA Person injured in unspecified motor-vehicle accident, traffic, initial encounter | CPT/HCPCS: 72072; 72100; 72125 ==